=== PATIENT | male | born 1950 | race Caucasian/White ===

== ENCOUNTER 2020-08-19 07:50 | Outpatient (CLI) | payer OTHER | END 2020-08-19 07:55 | disposition home or self-care (01) | LOC: NUCLEAR 07:50 | PROVIDERS: ATTEND Internal Medicine Cardiovascular Disease | DX: I73.9 Peripheral vascular disease, unspecified (principal) ==

== ENCOUNTER 2021-05-24 07:17 | Outpatient (CLI) | payer OTHER | END 2021-05-24 07:21 | disposition home or self-care (01) | LOC: NUCLEAR 07:17 | PROVIDERS: ATTEND Internal Medicine Cardiovascular Disease | DX: I25.10 Atherosclerotic heart disease of native coronary artery without angina pectoris (principal); I11.9 Hypertensive heart disease without heart failure; E11.9 Type 2 diabetes mellitus without complications | CPT/HCPCS: 78452; 93017; A9500; J0153 ==

== ENCOUNTER 2021-08-18 14:25 | Outpatient (CLI) | payer OTHER | END 2021-08-18 14:40 | disposition home or self-care (01) | LOC: PPH VACUNA 14:25 | PROVIDERS: ATTEND Emergency Medicine Pediatric Emergency Medicine | DX: Z23 Encounter for immunization (principal) ==

== ENCOUNTER 2021-10-10 14:30 | Outpatient (CLI) | payer OTHER | END 2021-10-10 14:43 | disposition home or self-care (01) | LOC: RAD 14:30 | PROVIDERS: ATTEND Ophthalmology | DX: H25.012 Cortical age-related cataract, left eye (principal); Z98.42 Cataract extraction status, left eye ==

== ENCOUNTER 2021-12-29 13:54 | Outpatient (CLI) | payer OTHER | END 2021-12-29 14:11 | disposition home or self-care (01) | LOC: RAD 13:54 | PROVIDERS: ATTEND Urology | DX: R97.20 Elevated prostate specific antigen [PSA] (principal) ==

== ENCOUNTER → 2022-03-01 | Outpatient (CLI) | payer OTHER | END | disposition home or self-care (01) | LOC: NUCLEAR 07:00 | PROVIDERS: ATTEND Urology | DX: C61 Malignant neoplasm of prostate (principal) | CPT/HCPCS: 78306; A9503 ==

== ENCOUNTER 2023-03-27 08:35 | Outpatient (CLI) | payer OTHER | END 2023-03-27 08:58 | disposition home or self-care (01) | LOC: RAD 08:35 | PROVIDERS: ATTEND Internal Medicine Cardiovascular Disease | DX: J94.8 Other specified pleural conditions (principal); Z88.5 Allergy status to narcotic agent ==

== ENCOUNTER 2023-05-29 08:35 | Outpatient (CLI) | payer OTHER | END 2023-05-29 08:37 | disposition home or self-care (01) | LOC: TOM 08:35 | PROVIDERS: ATTEND Internal Medicine Pulmonary Disease | DX: J84.112 Idiopathic pulmonary fibrosis (principal) ==

== ENCOUNTER 2024-08-26 10:04 | Outpatient (CLI) | payer OTHER | END 2024-08-26 10:06 | disposition home or self-care (01) | LOC: SONOGRAMA 10:04 | PROVIDERS: ATTEND Specialist/Technologist, Other Nephrology | DX: R10.9 Unspecified abdominal pain (principal); N18.30 Chronic kidney disease, stage 3 unspecified; R31.9 Hematuria, unspecified ==

== ENCOUNTER 2024-09-25 15:26 | Outpatient (CLI) | payer OTHER | END 2024-09-25 15:29 | disposition home or self-care (01) | LOC: RAD 15:26 | PROVIDERS: ATTEND Internal Medicine Pulmonary Disease | DX: J44.1 Chronic obstructive pulmonary disease with (acute) exacerbation (principal) ==

== ENCOUNTER 2024-09-29 17:51 | Inpatient (IN) | payer OTHER ==
[~2024-09-29] VITALS: Ht 182.9 cm; Wt 86.2 kg
[2024-09-29] MEDS ORDERED: TOPROL XL100 M1 PO (19:01)
[2024-09-29] MEDS ORDERED: [UNRECOGNIZED DRUG - OTHER] PO (19:01)
[2024-09-29] MEDS ORDERED: ADULT LOW DOSE81 M1 PO (19:01)
[2024-09-29] MEDS ORDERED: SINGULAIR10 MG (19:01)
[2024-09-29] MEDS ORDERED: PROAIR RESPICL90 MCG (19:02)
[2024-09-29] MEDS ORDERED: [UNRECOGNIZED DRUG - OTHER] (19:02)
--- NOTE | 2024-09-29 19:23 | NUR ---
PACIENTE ALERTA Y ORIENTADO X3 QUIEN REFIERE VENIR POR FATIGA, SENSACION DE AHOGO Y EXTREMIDADES INFERIORES CON EDEMA. PACIENTE REFIERE HABERSE REALIZADO UN ESTUDIO Y SALIR CON PULMONIA RESULTADOS CON EL. PACIENTE SE REALIZA EKG Y SE PRESENTA DR. CARTAGENA.
[2024-09-29 19:43] LABS: BASO % 0.5 % (0.1-1.2); EOS # 0.16 (0.04-0.54); EOS % 1.6 % (0.7-7.0); LYMPH # 1.39 (1.18-3.74); LYMPH % 13.7 % (19.3-53.1); MEAN PLATELET VOLUME 9.70 fl (9.4-12.4); MONO # 1.11 (0.24-0.82); MONO % 11.0 % (4.7-12.5); NEUT # 7.37 (1.56-6.13); NEUT % 72.8 % (34.0-71.1); RED CELL DISTRIBUTION WIDTH 14.8 % (11.6-14.4)
[2024-09-29] MEDS ORDERED: AMIODARONE HCL 50 MG/ML AMPUL IV ONE (19:45)
--- NOTE | 2024-09-29 19:50 | NUR ---
SE RECIBE PACIENTE MASCULINO ALERTA Y ORIENTADO X 3 ESFERAS, SE UBICA EN CAMA #2, SE CONECTA A MONITOR CARDIACO Y OXIMETRIA DE PULSO. EVALUA PACIENTE. SE ORIENTA A PACIENTE SOBRE TRATAMIENTO MEDICO, REFIERE ENTENDER. SE REALIZAN MUESTRAS DE LABORATORIO BAJO MEDIDAS ASEPTICAS. SE ADMINISTRA CORDARONE 150MG IV POR YINKA JOSE DOSIS Y SE CONTINUA CON EL DRIP DE AMIODARONE 900MG/500ML EN D5W 500ML BAJANDO A 33ML (COMENZANDO A LAS 8:05PM). PACIENTE REHUSA SONDA URINARIA. SE COORDINA MYRON X. SE MTATHEW EN CAMA CON BARANDAS ELEVADAS POR SEGURIDAD Y SE MANTIENE EN OBSERVACION POR CAMBIOS.
[2024-09-29 20:07] LABS: INR 1.22
[2024-09-29 20:08] LABS: COVID-19 AG NEGATIVE (NEGATIVE)
[2024-09-29 20:15] LABS: ALT/SGPT 35.0 U/L (12-78); AST/SGOT 25.0 U/L (15-37); BILIRUBIN TOTAL 0.99 mg/dL (0.3-1.2); BUN CREA RATIO 11.0 (7.0-25.0); CREATININE SERUM 1.14 mg/dL (0.70-1.30); GFR 63.14; GLOBULINA 3.5 G/DL (2.4-3.5); GLUCOSE FASTING 116.0 mg/dL (65-100); LDH 204.0 U/L (87-241); OSMOLALITY SERUM 273.0 MOSM/KG (275-295); PHOSPHOKINASE CREATININE 104.0 U/L (39-308)
[2024-09-29] MEDS ORDERED: LEVALBUTEROL HCL 1.25 MG/3 ML SOLUTION IH SCH (21:00)
[2024-09-29] MEDS ORDERED: AMIODARONE HCL 450MG/9ML VIAL IV SCH (21:00)
[2024-09-29 21:36] LABS: URINE APPEARANCE Clear; URINE BILIRRUBIN Negative (NEGATIVE); URINE BLOOD Trace; URINE COLOR Yellow; URINE GLUCOSE Negative (NEGATIVE); URINE KETONE Negative (NEGATIVE); URINE LEUKOCYTE Negative; URINE NITRATE Negative; URINE PROTEIN Negative (NEGATIVE); URINE UROBILINOGEN 0.2 E.U./dl
[2024-09-29 21:38] LABS: URINE BACTERIA 11.9 uL (0.0-1933); URINE CAST 1.75 uL (0.0-1.40); URINE EPITHELIAL CELLS 1.9 uL (0.0-38.8); URINE RBC 5.7 uL (0.0-20.8)
[2024-09-29 21:44] LABS: URINE WBC 1.6 uL (0.0-23.2)
[2024-09-29] MEDS ORDERED: ENOXAPARIN SODIUM 80 MG/0.8 ML SYRINGE SUBCUTANEO SCH (21:56)
[2024-09-29] MEDS ORDERED: CEFTRIAXONE SODIUM 2,000 MG in 0.9 % SODIUM CHLORIDE 100 ML IV SCH (21:56)
[2024-09-29] MEDS ORDERED: AZITHROMYCIN 500 MG in DEXTROSE 5 % IN WATER 250 ML IV SCH (21:56)
[2024-09-29] MEDS ORDERED: ACETAMINOPHEN 500 MG GEL..CAP PO PRN (22:00)
[2024-09-29] MEDS ORDERED: NITROGLYCERIN IN 5 % DEXTROSE 250 ML IV SCH (22:00)
[2024-09-29] MEDS ORDERED: IPRATROPIUM BROMIDE 0.5 MG/2.5 ML AMPUL.NEB IH SCH (22:02)
[2024-09-29 22:56] LABS: ABG PH 7.429 (7.35-7.45)
[2024-09-29 22:57] LABS: BICARBONATE 23.1 mmol/l (23-25); o2 32 %
[2024-09-29 22:59] LABS: ABG PO2 72.4 mmHg (80-100)
[2024-09-30] VITALS (8 sets, daily range): BP systolic 114–154; BP diastolic 66–95; O2SAT 95–100
[2024-09-30] MEDS ORDERED: AMIODARONE HCL 900 MG in DEXTROSE 5 % IN WATER 500 ML IV SCH (07:00)
[2024-09-30] MEDS ORDERED: ATORVASTATIN CALCIUM 40 MG TABLET PO SCH (09:00)
[2024-09-30] MEDS ORDERED: BUDESONIDE 0.5 MG/2 ML AMPUL.NEB IH SCH (09:18)
[2024-09-30] MEDS ORDERED: METOPROLOL SUCCINATE 50 MG TAB.SR.24H PO SCH (09:18)
[2024-09-30] MEDS ORDERED: PANTOPRAZOLE SODIUM 40 MG/VIAL VIAL IV PUSH SCH (09:19)
[2024-09-30] MEDS ORDERED: GUAIFENESIN 200 MG/10 ML BLIST.PACK PO SCH ×2 (09:30→14:00)
[2024-09-30] MEDS ORDERED: DILTIAZEM HCL 25 MG/5 ML VIAL IV STA (10:55)
[2024-09-30] MEDS ORDERED: DILTIAZEM HCL 125 MG in 0.9 % SODIUM CHLORIDE 125 ML IV SCH (11:00)
[2024-09-30] MEDS ORDERED: METHYLPREDNISOLONE SOD SUCC 40 MG VIAL IV SCH (13:00)
[2024-09-30] MEDS ORDERED: AZITHROMYCIN 500 MG VIAL IV SCH (21:00)
[2024-10-01] VITALS (9 sets, daily range): BP systolic 117–138; BP diastolic 71–83; O2SAT 88–98
[2024-10-01 07:07] LABS: ALT/SGPT 30.0 U/L (12-78); AST/SGOT 18.0 U/L (15-37); BILIRUBIN TOTAL 0.65 mg/dL (0.3-1.2); BUN CREA RATIO 14.0 (7.0-25.0); CREATININE SERUM 0.84 mg/dL (0.70-1.30); GFR 89.82; GLOBULINA 3.0 G/DL (2.4-3.5); GLUCOSE FASTING 159.0 mg/dL (65-100); LDH 172.0 U/L (87-241); OSMOLALITY SERUM 281.0 MOSM/KG (275-295)
[2024-10-01 07:21] LABS: BASO % 0.0 % (0.1-1.2); EOS # 0.00 (0.04-0.54); EOS % 0.0 % (0.7-7.0); LYMPH # 0.51 (1.18-3.74); LYMPH % 9.2 % (19.3-53.1); MEAN PLATELET VOLUME 10.10 fl (9.4-12.4); MONO # 0.14 (0.24-0.82); MONO % 2.5 % (4.7-12.5); NEUT # 4.90 (1.56-6.13); NEUT % 87.9 % (34.0-71.1); RED CELL DISTRIBUTION WIDTH 14.5 % (11.6-14.4)
[2024-10-01] MEDS ORDERED: APIXABAN 5 MG TABLET PO SCH (09:00)
[2024-10-01] MEDS ORDERED: ISOSORBIDE MONONITRATE 30 MG TABLET PO SCH (09:00)
[2024-10-01] MEDS ORDERED: MAGNESIUM SULFATE IN WATER 50 ML IV NR (09:00)
[2024-10-01 09:03] LABS: MYCOPLASMA PNEUMONIAE IGM NON REACTIVE (NO REACTIVE)
[2024-10-01] MEDS ORDERED: METHYLPREDNISOLONE SOD SUCC 40 MG VIAL IV SCH (21:00)
[2024-10-02] VITALS (8 sets, daily range): BP systolic 119–154; BP diastolic 60–87; O2SAT 95–99
[2024-10-02] MEDS ORDERED: METOPROLOL SUCCINATE 100 MG TAB.SR.24H PO SCH (09:00)
[2024-10-02] MEDS ORDERED: METOPROLOL SUCCINATE 50 MG TAB.SR.24H PO SCH (09:00)
[2024-10-02] MEDS ORDERED: PANTOPRAZOLE SODIUM 40 MG TABLET.DR PO SCH (09:00)
[2024-10-02] MEDS ORDERED: DILTIAZEM HCL 60 MG TABLET PO SCH (09:00)
[2024-10-02] MEDS ORDERED: CANDESARTAN CILEXETIL 8 MG TAB PO SCH (09:00)
[2024-10-02 14:30] LABS: ABG PH 7.422 (7.35-7.45); ABG PO2 67.6 mmHg (80-100); BICARBONATE 27.8 mmol/l (23-25)
[2024-10-02 14:31] LABS: o2 21 %
[2024-10-02] MEDS ORDERED: SIMVASTATIN 40 MG TABLET PO SCH (17:00)
[2024-10-03 00:16] VITALS: O2SAT 98
[2024-10-03 00:39] VITALS: BP 120/76; O2SAT 94
[2024-10-03 05:35] VITALS: O2SAT 99
[2024-10-03 09:19] VITALS: O2SAT 99
[2024-10-03 09:27] VITALS: BP 133/80; O2SAT 97
[2024-10-03 13:37] VITALS: O2SAT 90
[2024-10-03] MEDS ORDERED: ELIQUIS5 MG PO (14:03)
[2024-10-03] MEDS ORDERED: CANDESARTAN CILE8 MG PO (14:04)
[2024-10-03] MEDS ORDERED: CARDIZEM60 MG PO (14:04)
[2024-10-03] MEDS ORDERED: SIMVASTATIN40 MG PO (14:08)
[2024-10-03] MEDS ORDERED: FUROSEMIDE20 MG PO (14:09)
== END 2024-10-03 15:34 | disposition home or self-care (01) | DRG 291 ==
LOC: ER 17:51 → ICU-2 22:18 → MEDI 09-30 16:21
PROVIDERS: General Practice; Internal Medicine; Internal Medicine Infectious Disease; ADMIT Internal Medicine; ATTEND Internal Medicine
PROC: 4A12X4Z Monitoring of Cardiac Electrical Activity, External Approach (ICD-10-PCS; principal; 2024-09-29)
PROC: B246ZZZ Ultrasonography of Right and Left Heart (ICD-10-PCS; 2024-09-29)
PROC: 3E0F7GC Introduction of Other Therapeutic Substance into Respiratory Tract, Via Natural or Artificial Opening (ICD-10-PCS; 2024-09-29)
PROC: BB24ZZZ Computerized Tomography (CT Scan) of Bilateral Lungs (ICD-10-PCS; 2024-09-29)
PROC: 3E0F7SF Introduction of Other Gas into Respiratory Tract, Via Natural or Artificial Opening (ICD-10-PCS; 2024-09-30)
DX: I50.23 Acute on chronic systolic (congestive) heart failure (principal); J18.0 Bronchopneumonia, unspecified organism; I13.0 Hypertensive heart and chronic kidney disease with heart failure and stage 1 through stage 4 chronic kidney disease, or unspecified chronic kidney disease; J44.1 Chronic obstructive pulmonary disease with (acute) exacerbation; I48.20 Chronic atrial fibrillation, unspecified; N17.9 Acute kidney failure, unspecified; J91.8 Pleural effusion in other conditions classified elsewhere; J92.0 Pleural plaque with presence of asbestos; I27.20 Pulmonary hypertension, unspecified; N18.9 Chronic kidney disease, unspecified; Z87.891 Personal history of nicotine dependence

== ENCOUNTER 2024-11-17 11:56 | Outpatient (CLI) | payer OTHER ==
[~2024-11-17 11:56] MED LIST: ADULT LOW DOSE81 M1 PO; CANDESARTAN CILE8 MG PO; CARDIZEM60 MG PO; ELIQUIS5 MG PO; FUROSEMIDE20 MG PO; PROAIR RESPICL90 MCG; SIMVASTATIN40 MG PO; SINGULAIR10 MG; TOPROL XL100 M1 PO; [UNRECOGNIZED DRUG - OTHER]; [UNRECOGNIZED DRUG - OTHER] PO
== END 2024-11-17 12:05 | disposition home or self-care (01) ==
LOC: TOM 11:56
PROVIDERS: ATTEND Internal Medicine Pulmonary Disease
DX: R91.8 Other nonspecific abnormal finding of lung field (principal)

== ENCOUNTER 2024-12-01 08:45 | Outpatient (CLI) | payer OTHER | END 2024-12-01 08:46 | disposition home or self-care (01) | LOC: SONOGRAMA 08:45 | PROVIDERS: ATTEND Internal Medicine Cardiovascular Disease | DX: R93.2 Abnormal findings on diagnostic imaging of liver and biliary tract (principal) ==

== ENCOUNTER 2024-12-11 08:58 | Outpatient (CLI) | payer OTHER | END 2024-12-11 08:59 | disposition home or self-care (01) | LOC: TOM 08:58 | PROVIDERS: ATTEND Internal Medicine | DX: K76.3 Infarction of liver (principal) | CPT/HCPCS: 74177; Q9965 ==

== ENCOUNTER 2025-01-07 10:02 | Outpatient (CLI) | payer OTHER | END 2025-01-07 10:09 | disposition home or self-care (01) | LOC: RAD 10:02 | PROVIDERS: ATTEND Internal Medicine | DX: I10 Essential (primary) hypertension (principal) ==